=== PATIENT | male | born 1955 | race Hispanic/Latino ===

== ENCOUNTER 2019-03-27 19:49 | Emergency (ER) | payer OTHER ==
[2019-03-27 19:53] VITALS: RESP 16
[2019-03-27 21:35] VITALS: BP 147/86; PULSE 81; TEMP 98.5; O2SAT 98
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
== END 2019-03-27 21:30 | disposition home or self-care (01) ==
LOC: H.ER 19:49
DX: M54.5 Low back pain (principal)